=== PATIENT | male | born 1960 | race Asian ===

== ENCOUNTER 2017-11-08 08:09 | Day surgery (SDC) | payer BC ==
[~2017-11-08] VITALS: Ht 167.6 cm; Wt 83.9 kg
[~2017-11-08 08:09] MED LIST: CEFAZOLIN SOD 1 GM/ ISO 50 ML PREMIX IV ONE
[2017-11-08] MEDS ORDERED: ONDANSETRON HCL 4 MG/2 ML VIAL IVP ONE (11:45)
[2017-11-08] MEDS ORDERED: MIDAZOLAM HCL 5 MG/5 ML VIAL IVP ONE (11:45)
[2017-11-08] MEDS ORDERED: SEVOFLURANE 15 MIN GAS INH ONE (11:45)
[2017-11-08] MEDS ORDERED: NS IRRIG SOLN 1000 ML IR ONE (11:45)
[2017-11-08] MEDS ORDERED: BUPIVACAINE /PF 0.25% 30 ML VIAL INJ ONE (11:45)
[2017-11-08] MEDS ORDERED: EPINEPHrine 1 MG/ML AMP IV ONE (11:45)
[2017-11-08] MEDS ORDERED: fentaNYL CITRATE/PF 100 MCG/2 ML AMP IVP ONE (11:45)
[2017-11-08] MEDS ORDERED: LR 1,000 ML IV.SOLN IV ONE (11:45)
[2017-11-08] MEDS ORDERED: PROPOFOL 200MG/ 20ML VIAL (DIPRIVAN) IV ONE (11:45)
[2017-11-08] MEDS ORDERED: LR 1,000 ML IV SCH (12:34)
[2017-11-08] MEDS ORDERED: MORPHINE 4 MG/ML INJ. SYRINGE IVP PRN ×3 (12:45)
[2017-11-08] MEDS ORDERED: METOCLOPRAMIDE HCL 10 MG/2 ML VIAL IVP PRN (12:45)
[2017-11-08] MEDS ORDERED: METOCLOPRAMIDE HCL 10 MG/2 ML VIAL ONE (13:37)
[2017-11-08 16:02] VITALS: BP_SYST 131
== END 2017-11-08 15:50 | disposition home or self-care (01) ==
LOC: SMU 08:09 → SDS 08:09
PROVIDERS: ATTEND Colon & Rectal Surgery
DX: K60.3 Anal fistula (principal); I10 Essential (primary) hypertension; Z98.49 Cataract extraction status, unspecified eye; Z98.890 Other specified postprocedural states; Z68.30 Body mass index [BMI] 30.0-30.9, adult; Z79.899 Other long term (current) drug therapy; G62.9 Polyneuropathy, unspecified; M19.90 Unspecified osteoarthritis, unspecified site; K21.9 Gastro-esophageal reflux disease without esophagitis
CPT/HCPCS: 46270; 88304; J0171; J0690; J2250; J2405; J2704; J2765; J3010; J3490; J7120